=== PATIENT | female | born 1945 | race Caucasian/White ===

== ENCOUNTER 2021-01-20 14:26 | Outpatient (CLI) | payer MEDICARE ==
[2021-01-20] MEDS ORDERED: APIX5TAB PO (15:14)
[2021-01-20] MEDS ORDERED: PANT40TA3 PO (15:14)
[2021-01-20] MEDS ORDERED: GABA300C PO (15:14)
[2021-01-20] MEDS ORDERED: losartan PO (15:14)
[2021-01-20] MEDS ORDERED: [UNRECOGNIZED DRUG - CODE] PO (15:14)
[2021-01-20 15:41] LABS: BASOPHILS % (AUTO) 1 % (0-1); EOSINOPHILS % (AUTO) 3 % (1-7); LYMPHOCYTES % (AUTO) 26 % (22-44); MEAN CORPUSCULAR HGB CONC 32.7 g/dL (32.4-35.8); MEAN PLATELET VOLUME 7.9 fL (7.4-10.4); MONOCYTES % (AUTO) 8 % (2-9); NEUTROPHILS % (AUTO) 62 % (42-75); PLATELET COUNT 226 x10^3/uL (130-400); RED BLOOD COUNT 4.65 x10^6/uL (3.82-5.3); RED CELL DISTRIBUTION WIDTH 15.3 % (9.6-15.2)
[2021-01-20 15:54] LABS: INTERNATIONAL NORMALIZED RATIO 0.96 (0.93-1.1); PROTHROMBIN TIME 10.3 Seconds (9.6-11.5)
[2021-01-20 15:55] LABS: ALANINE AMINOTRANSFERASE 25 U/L (12-78); ALBUMIN 3.3 g/dL (3.4-5.0); ANION GAP 5 mmol/L (5-15); CALCIUM 8.4 mg/dL (8.5-10.1); CHLORIDE 111 mmol/L (98-107); CREATININE 0.72 mg/dL (0.55-1.02)
[2021-01-20 15:57] LABS: ALKALINE PHOSPHATASE 98 U/L (45-117); BILIRUBIN,TOTAL 0.4 mg/dL (0.2-1.0); TOTAL PROTEIN 7.3 g/dL (6.4-8.2)
[2021-01-20 16:15] LABS: MICROSCOPIC INDICATED
== END 2021-01-20 23:59 | disposition home or self-care (01) ==
LOC: STAR 14:26
PROVIDERS: ATTEND Neurological Surgery
DX: Z01.818 Encounter for other preprocedural examination (principal); M51.36 Other intervertebral disc degeneration, lumbar region; M43.16 Spondylolisthesis, lumbar region; M47.816 Spondylosis without myelopathy or radiculopathy, lumbar region; I45.10 Unspecified right bundle-branch block; R79.1 Abnormal coagulation profile; R94.31 Abnormal electrocardiogram [ECG] [EKG]; R82.90 Unspecified abnormal findings in urine
CPT/HCPCS: 36415; 71046; 72110; 80053; 81001; 85025; 85610; 85730; 87086; 93005